=== PATIENT | female | born 1985 | race American Indian/Alaskan Native ===

== ENCOUNTER 2017-08-09 22:33 | Emergency (ER) | payer MEDICAID, OTHER ==
[2017-08-10 00:58] LABS: Basophils % (Auto) 0.5 % (0.0-1.8); Eosinophils % (Auto) 1.5 % (0.0-4.3); Hematocrit 28.9 % (30.3-42.9); Hemoglobin 9.8 gm/dl (10.1-14.3); Mean Corpuscular HGB Conc 34 % (30-34); Mean Corpuscular Hemoglobin 28 pg (28-32); Mean Corpuscular Volume 81 fl (79-97); Platelet Count 195 K/mm3 (140-440); Red Blood Count 3.55 M/mm3 (3.65-5.03); Red Cell Distribution Width 13.9 % (13.2-15.2); White Blood Count 10.8 K/mm3 (4.5-11.0)
[2017-08-10 01:10] LABS: Anion Gap 18 mmol/L; Blood Urea Nitrogen 7 mg/dL (7-17); Calcium 8.5 mg/dL (8.4-10.2); Carbon Dioxide 20 mmol/L (22-30); Glucose 114 mg/dL (65-100); Potassium 4.1 mmol/L (3.6-5.0); Sodium 137 mmol/L (137-145)
[2017-08-10 03:12] LABS: Bacteria,Urine 2+ /HPF (Negative); Bilirubin,Urine NEG (Negative); Blood,Urine NEG (Negative); Ketones,Urine NEG (Negative); Leukocyte Esterase,Urine LG (Negative); Mucus,Urine 2+ /HPF; Nitrite,Urine NEG (Negative)
[2017-08-10 04:06] VITALS: BP 133/89
--- NOTE | 2017-08-10 08:53 | Emergency Department Report ---
ED General Adult HPI - General Chief complaint: Extremity Injury, Lower Stated complaint: BILATERAL FEET SWELLING; 19 WKS PREG Time Seen by Provider: 08/10/17 08:51 Source: patient, family Mode of arrival: Ambulatory Limitations: No Limitations - History of Present Illness Initial comments: Patient here reports that she is 19 weeks and she's been followed by OB /TAKE OUT WAITER doctor which she is supposed to see in 3 days. She said today she woke up with both her legs swollen. She denies any pain but she reports headache at 5 out of 10 to the front of her head. Denies any nausea or vomiting. She also stated that she's been having right back pain 2 weeks. Reports some urinary frequency but denies urinary burning or urgency. Denies any vaginal discharge or bleeding. She says she had ultrasound done and baby was in her uterus. 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 Patient does not have any personal history of blood clots but her mom has a history of DVT. 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 She denies any shortness of breath or chest pain. Denies any abdominal pain. Denies any fever or chills. Pain is achy and she has not taken any medication for pain. Denies any redness or pain to bilateral lower extremity. Patient said that she's been having headaches and this has been addressed by her VEGETABLE TRIMMER doctor who is going to refer to a neurologist. MD Complaint: swelling to legs -: This morning (swelling legs) Location: head, back Radiation: non-radiation Severity scale (0 -10): 5 (headache and back pain) Quality: aching Consistency: intermittent Improves with: none Worsens with: none Associated Symptoms: headaches. denies: confusion, chest pain, cough, diaphoresis, fever/chills, loss of appetite, malaise, nausea/vomiting, rash, seizure, shortness of breath, syncope, weakness Treatments Prior to Arrival: none - Related Data Previous Rx's Medication Instructions Recorded Last Taken Type Acetaminophen/Codeine [Tylenol #3] 1 tab PO QHS #7 tablet 05/07/15 Unknown Rx methOCARBAMOL [Robaxin] 500 mg PO BID #14 tab 05/07/15 Unknown Rx Allergies Allergy/AdvReac Type Severity Reaction Status Date / Time No Known Allergies Allergy Unverified 05/07/15 11:14 ED Review of Systems ROS: Stated complaint: BILATERAL FEET SWELLING; 19 WKS PREG Other details as noted in HPI Comment: All other systems reviewed and negative Constitutional: no symptoms reported Eyes: denies: eye pain, vision change ENT: denies: ear pain, throat pain, congestion Respiratory: no symptoms reported Cardiovascular: edema (ble). denies: chest pain, palpitations, dyspnea on exertion, syncope, paroxysmal nocturnal dyspnea Gastrointestinal: denies: abdominal pain, nausea, vomiting, diarrhea, constipation, hematemesis, melena, hematochezia Genitourinary: denies: urgency, dysuria, frequency, hematuria, discharge, dyspareunia Musculoskeletal: back pain. denies: joint swelling, arthralgia, myalgia Skin: denies: rash Neurological: headache. denies: weakness, numbness, paresthesias, confusion, abnormal gait, vertigo ED Past Medical Hx - Past Medical History Previous Medical History?: Yes Hx Headaches / Migraines: Yes Additional medical history: Anemia - Surgical History Past Surgical History?: No - Family History Family history: no significant - Social History Smoking Status: Never Smoker Substance Use Type: None - Medications Home Medications: Home Medications Medication Instructions Recorded Confirmed Last Taken Type Acetaminophen/Codeine [Tylenol #3] 1 tab PO QHS #7 tablet 05/07/15 Unknown Rx methOCARBAMOL [Robaxin] 500 mg PO BID #14 tab 05/07/15 Unknown Rx ED Physical Exam - General Limitations: No Limitations General appearance: alert, in no apparent distress - Head Head exam: Present: atraumatic, normocephalic, normal inspection - Eye Eye exam: Present: normal appearance, PERRL, EOMI. Absent: nystagmus, periorbital swelling, periorbital tenderness Pupils: Present: normal accommodation - ENT ENT exam: Present: normal exam, normal orophraynx, mucous membranes moist, TM's normal bilaterally, normal external ear exam - Neck Neck exam: Present: normal inspection, full ROM. Absent: tenderness, lymphadenopathy - Respiratory Respiratory exam: Present: normal lung sounds bilaterally. Absent: respiratory distress, wheezes, rales, rhonchi, stridor, chest wall tenderness, accessory muscle use, decreased breath sounds, prolonged expiratory - Cardiovascular Cardiovascular Exam: Present: regular rate, normal rhythm, normal heart sounds - GI/Abdominal GI/Abdominal exam: Present: soft, normal bowel sounds. Absent: distended, tenderness, guarding, rebound, rigid, organomegaly, mass, bruit, pulsatile mass - Extremities Exam Extremities exam: Present: normal inspection, full ROM, normal capillary refill , pedal edema ( proximal to distal to include feet bilateral lower extremity), other (no neurovascular compromise. Pulses to extremities are 2+.). Absent: tenderness, joint swelling, calf tenderness - Back Exam Back exam: Present: normal inspection, full ROM. Absent: tenderness, CVA tenderness (R), CVA tenderness (L), muscle spasm, paraspinal tenderness, vertebral tenderness, rash noted - Neurological Exam Neurological exam: Present: alert, oriented X3, normal gait, reflexes normal. Absent: motor sensory deficit - Expanded Neurological Exam Expanded Neurological exam: Absent: innattentive, memory loss-remote event, memory loss- recent event, ataxia, receptive aphasia, expressive aphasia, total aphasia, tremor, protecting the airway Patient oriented to: Present: person, place, time Speech: Present: fluid speech Cranial nerves: EOM's Intact: Normal, Gag Reflex: Normal, Tongue Deviation: Normal, Nystagmus: Normal, Facial Sensation: Normal Cerebellar function: Romberg: Normal Upper motor neuron: Pronator Drift: Normal, Sensory Extinction: Normal Sensory exam: Upper Extremity Light Touch: Normal, Upper Extremity Temperature: Normal, UE 2 Point Discrimination: Normal, Lower Extremity Light Touch: Normal Motor strength exam: RUE: 5, LUE: 5, RLE: 5, LLE: 5 DTR: bicep (R): 2+, bicep (L): 2+, tricep (R): 2+, tricep (L): 2+, knee (R): 2+ , knee (L): 2+, ankle (R): 2+, ankle (L): 2+ Best Eye Response (Marcela): (4) open spontaneously Best Motor Response (Marcela): (6) obeys commands Best Verbal Response ([place]): (5) oriented Marcela Total: 15 - Psychiatric Psychiatric exam: Present: normal affect, normal mood - Skin Skin exam: Present: warm, dry, intact, normal color. Absent: rash ED Course Vital Signs 08/09/17 08/10/17 23:29 04:05 Temperature 97.9 F 97.9 F Pulse Rate 97 H 91 H Respiratory 16 16 Rate Blood Pressure 118/82 133/89 Blood Pressure 118/82 [Left] O2 Sat by Pulse 100 100 Oximetry heart tone is 172 bpm via bedside monitor - Reevaluation(s) Reevaluation #1: 08/10/17 10:00 Patient stable no acute distress. She was updated on for vascular ultrasound due to bilateral lower extremity swelling. Reevaluation #2: 08/10/17 12:58 Patient remained stable without any distress. Patient with urinary tract infection and will be given Rocephin IM injection. Bilateral lower extremity negative for DVT or SVT. ED Medical Decision Making - Lab Data Result diagrams: 08/10/17 00:21 08/10/17 00:21 Lab Results 08/09/17 08/10/17 08/10/17 Range/Units 03:00 00:21 00:21 WBC 10.8 (4.5-11.0) K/mm3 RBC 3.55 L (3.65-5.03) M/mm3 Hgb 9.8 L (10.1-14.3) gm/dl Hct 28.9 L (30.3-42.9) % MCV 81 (79-97) fl MCH 28 (28-32) pg MCHC 34 (30-34) % RDW 13.9 (13.2-15.2) % Plt Count 195 (140-440) K/mm3 Lymph % (Auto) 29.2 (13.4-35.0) % [place] % (Auto) 6.6 (0.0-7.3) % Eos % (Auto) 1.5 (0.0-4.3) % Baso % (Auto) 0.5 (0.0-1.8) % Lymph # 3.1 (1.2-5.4) K/mm3 [place] # 0.7 (0.0-0.8) K/mm3 Eos # 0.2 (0.0-0.4) K/mm3 Baso # 0.1 (0.0-0.1) K/mm3 Seg Neutrophils % 62.2 (40.0-70.0) % Seg Neutrophils # 6.7 (1.8-7.7) K/mm3 Sodium 137 (137-145) mmol/L Potassium 4.1 (3.6-5.0) mmol/L Chloride 103.0 (98-107) mmol/L Carbon Dioxide 20 L (22-30) mmol/L Anion Gap 18 mmol/L BUN 7 (7-17) mg/dL Creatinine 0.5 L (0.7-1.2) mg/dL Estimated GFR > 60 ml/min BUN/Creatinine Ratio 14.00 % Glucose 114 H (65-100) mg/dL Calcium 8.5 (8.4-10.2) mg/dL HCG, Quant (0-4) mIU/mL Urine Color Yellow (Yellow) Urine Turbidity Clear (Clear) Urine pH 6.0 (5.0-7.0) Ur Specific [place] 1.028 (1.003-1.030) Urine Protein 30 mg/dl (Negative) mg/dL Urine Glucose (UA) Neg (Negative) mg/dL Urine Ketones Neg (Negative) mg/dL Urine Blood Neg (Negative) Urine Nitrite Neg (Negative) Urine Bilirubin Neg (Negative) Urine Urobilinogen 2.0 (<2.0) mg/dL Ur Leukocyte Esterase Lg (Negative) Urine WBC (Auto) 76.0 H (0.0-6.0) /HPF Urine RBC (Auto) 4.0 (0.0-6.0) /HPF U Epithel Cells (Auto) 44.0 H (0-13.0) /HPF Urine Bacteria (Auto) 2+ (Negative) /HPF Calcium Oxalate Crystal 1+ Hyaline Casts 1 /LPF Urine Mucus 2+ /HPF 08/10/17 Range/Units 00:21 WBC (4.5-11.0) K/mm3 RBC (3.65-5.03) M/mm3 Hgb (10.1-14.3) gm/dl Hct (30.3-42.9) % MCV (79-97) fl MCH (28-32) pg MCHC (30-34) % RDW (13.2-15.2) % Plt Count (140-440) K/mm3 Lymph % (Auto) (13.4-35.0) % [place] % (Auto) (0.0-7.3) % Eos % (Auto) (0.0-4.3) % Baso % (Auto) (0.0-1.8) % Lymph # (1.2-5.4) K/mm3 [place] # (0.0-0.8) K/mm3 Eos # (0.0-0.4) K/mm3 Baso # (0.0-0.1) K/mm3 Seg Neutrophils % (40.0-70.0) % Seg Neutrophils # (1.8-7.7) K/mm3 Sodium (137-145) mmol/L Potassium (3.6-5.0) mmol/L Chloride (98-107) mmol/L Carbon Dioxide (22-30) mmol/L Anion Gap mmol/L BUN (7-17) mg/dL Creatinine (0.7-1.2) mg/dL Estimated GFR ml/min BUN/Creatinine Ratio % Glucose (65-100) mg/dL Calcium (8.4-10.2) mg/dL HCG, Quant 99703 H (0-4) mIU/mL Urine Color (Yellow) Urine Turbidity (Clear) Urine pH (5.0-7.0) Ur Specific [place] (1.003-1.030) Urine Protein (Negative) mg/dL Urine Glucose (UA) (Negative) mg/dL Urine Ketones (Negative) mg/dL Urine Blood (Negative) Urine Nitrite (Negative) Urine Bilirubin (Negative) Urine Urobilinogen (<2.0) mg/dL Ur Leukocyte Esterase (Negative) Urine WBC (Auto) (0.0-6.0) /HPF Urine RBC (Auto) (0.0-6.0) /HPF U Epithel Cells (Auto) (0-13.0) /HPF Urine Bacteria (Auto) (Negative) /HPF Calcium Oxalate Crystal Hyaline Casts /LPF Urine Mucus /HPF urine CX pending - Radiology Data Radiology results: report reviewed VASCULAR LAB.PRELIMINARY REPORT.BLE VENOUS DUPLEX DONE BEDSIDE.NO EVIDENCE OF DVT/SVT IN VESSELS VISUALIZED. - Medical Decision Making ED course: Patient here reports that she is 19 weeks and insulin to her legs. She is also complaining of right back pain for 2 weeks with urinary frequency. Physical physical finding and normal except she has swelling to her lower extremity without any tenderness or erythema. She is neurovascular intact. Patient was also complaining a headache which she has had headache episodic over the past few months has been followed by her physician who will refer her to urologist. Patient was also complaining of right back pain and was found to have a urinary tract infection. Bilateral lower extremity Doppler ultrasound done and revealed no SVT or DVT. Lab work with CBC showing H&H at 9.8 and 28.9 which is low and the patient says she has a history of anemia and she is taking vitamins. [place] [id number]. No worrisome for ectopic because patient had normal ultrasound done by her VEGETABLE TRIMMER. She is not having any vaginal bleeding or discharge and she's had previous STD workup during her . Patient also with 30 protein in her urine. Pt has chest pain or shortness of breath. Patient with swelling to bilateral lower extremity, right lower back pain, at 19 weeks with heart tone stable. Headache which is chronic, acute cystitis and hematuria and anemia which is chronic. I discussed diagnosis and treatment plan along with ultrasound findings with patient and instructed her to keep her visit with her VEGETABLE TRIMMER in the next 3 days. She voiced understanding and discharged home in stable condition with her family member. Critical care attestation.: If time is entered above; I have spent that time in minutes in the direct care of this critically ill patient, excluding procedure time. ED Disposition Clinical Impression: Acute cystitis during in second trimester, Back pain during , Proteinuria during Anemia in Qualifiers: Trimester: second trimester Qualified Code(s): O99.012 - Anemia complicating , second trimester Headache Qualifiers: Headache type: unspecified Headache chronicity pattern: episodic headache Intractability: not intractable Qualified Code(s): R51 - Headache Edema during Qualifiers: Trimester: second trimester Qualified Code(s): O12.02 - Gestational edema, second trimester Disposition: DC-01 TO HOME OR SELFCARE Is pt being admited?: No Does the pt Need Aspirin: No Condition: Stable Instructions: Anemia (ED), Pre-eclampsia and Eclampsia (ED), Urinary Tract Infection in Women (ED), Back Pain (ED), Leg Edema (ED), Acute Headache (ED) Additional Instructions: These follow-up with the VEGETABLE TRIMMER as schedule in 3 days. You have swelling to both legs and also some protein in U urine so you'll need to let your VEGETABLE TRIMMER that you were seen in emergency room and will need to request chart from medical record department. If you develop abdominal pain, vaginal bleeding, elevated blood pressure please return to emergency room I[facility] You have a urinary tract infection and will be treated with antibiotic. increase your fluid intake. Take your vitamin as you have anemia. Referrals: PRIMARY CARE, [Primary Care Provider] - 2-3 Days your, VEGETABLE TRIMMER [Other] - 08/13/17 Forms: Accompanied Note, Work/School Release Form(ED)
[2017-08-10] MEDS ORDERED: ROCEPHIN IM STA (12:59)
--- NOTE | 2017-08-12 12:43 | Vascular Lab Report ---
Left Lower Extremity Venous Duplex Study: Reason for Exam: swelling of the left lower extremity. Comments on the Right: A limited duplex study was done of the proximal veins of the right lower extremity. All veins visualized are freely compressible without evidence of internal echogenicity. Flow is spontaneous and phasic throughout. No evidence of acute or chronic thrombus is seen in any of the vessels visualized. Comments on the Left: All veins visualized are freely compressible without evidence of internal echogenicity. Flow is spontaneous and phasic throughout. No evidence of acute or chronic thrombus is seen in any of the vessels visualized. Impression: No evidence of acute or chronic deep venous thrombosis in the left lower extremity.
== END 2017-08-10 14:02 | disposition home or self-care (01) ==
LOC: ED 22:33
DX: O23.12 Infections of bladder in pregnancy, second trimester (principal); N30.90 Cystitis, unspecified without hematuria; O12.22 Gestational edema with proteinuria, second trimester; O26.892 Other specified pregnancy related conditions, second trimester; M54.9 Dorsalgia, unspecified; R51 Headache; Z3A.19 19 weeks gestation of pregnancy
CPT/HCPCS: 36415; 80048; 81001; 84702; 85025; 87086; 93970; 96372; 99283; J0696

== ENCOUNTER 2017-11-26 19:14 | Outpatient (CLI) | payer OTHER ==
[2017-11-26] MEDS ORDERED: LACTATED RINGERS 500 ML IV ONE (19:16)
[2017-11-26 19:31] VITALS: BP 127/80
[2017-11-26 19:54] LABS: Bacteria,Urine 1+ /HPF (Negative); Bilirubin,Urine NEG (Negative); Blood,Urine NEG (Negative); Color,Urine Yellow (Yellow); Hyaline Casts,Urine 1 /LPF; Mucus,Urine 3+ /HPF; Nitrite,Urine NEG (Negative)
[2017-11-26 21:08] LABS: Bilirubin,Urine NEG (Negative); Blood,Urine NEG (Negative); Color,Urine Yellow (Yellow); Mucus,Urine 3+ /HPF; Nitrite,Urine NEG (Negative); Protein,Urine <15 mg/dL mg/dL (Negative)
== END 2017-11-26 21:22 | disposition home or self-care (01) ==
LOC: TRG 19:14
PROVIDERS: ATTEND Obstetrics & Gynecology
DX: Z34.93 Encounter for supervision of normal pregnancy, unspecified, third trimester (principal); Z3A.35 35 weeks gestation of pregnancy
CPT/HCPCS: 59025; 81001

== ENCOUNTER 2017-12-17 10:18 | Outpatient (CLI) | payer OTHER ==
[2017-12-17 11:24] LABS: Hematocrit 29.8 % (30.3-42.9); Hemoglobin 9.4 gm/dl (10.1-14.3); Mean Corpuscular HGB Conc 31 % (30-34); Mean Corpuscular Volume 76 fl (79-97); Platelet Count 196 K/mm3 (140-440); Red Blood Count 3.92 M/mm3 (3.65-5.03); Red Cell Distribution Width 14.6 % (13.2-15.2)
[2017-12-17 11:27] LABS: Bacteria,Urine 1+ /HPF (Negative); Bilirubin,Urine NEG (Negative); Blood,Urine NEG (Negative); Color,Urine Yellow (Yellow); Mucus,Urine 2+ /HPF; Nitrite,Urine NEG (Negative)
[2017-12-17 11:28] LABS: Mean Corpuscular Hemoglobin 24 pg (28-32)
[2017-12-17 11:38] LABS: Uric Acid 4.8 mg/dL (3.5-7.6)
[2017-12-17 12:06] VITALS: BP 131/84
--- NOTE | 2017-12-17 12:33 | Ultrasound Report ---
ULTRASOUND BIOPHYSICAL PROFILE: History: well being Technique: Transabdominal ultrasound with Doppler interrogation. 2 - breathing movements 2 - movements 2 - posture and tone 2 - Qualitative amniotic fluid volume 8 - TOTAL SCORE OF POSSIBLE 8 Heart Rate (bpm) 154
--- NOTE | 2017-12-18 08:02 | Ultrasound Report ---
OB ULTRASOUND History well being, size and dates, -induced hypertension. Technique: Transabdominal ultrasound with Doppler interrogation. Gestation: Single Position: Cephalic Amniotic Fluid: Normal SHELTON = 11.2 cm Placenta: Left lateral Placental Grade: 2 Heart Rate: 158 BPM Cervical length: 2.9 cm (Normal > 3 cm) BPD: 9.4 cm = 38 w 3 d HC: 34.6 cm = 40 w 0 d AC: 33.2 cm = 37 w 1 d FL: 7.0 cm = 36 w 0 d HC/AC Ratio: 1.04 Cephalic Index: 85.8 Estimated Weight: 3170 grams. 41 percentile. Clinical age = 38 w 1 d EDC: 12/30/17 US Gest. Age = 37 w 6 d EDC: 01/01/18 IMPRESSION: Viable, single intrauterine as described.
== END 2017-12-17 12:24 | disposition home or self-care (01) ==
LOC: TRG 10:18
PROVIDERS: ATTEND Obstetrics & Gynecology
DX: Z34.93 Encounter for supervision of normal pregnancy, unspecified, third trimester (principal); Z3A.38 38 weeks gestation of pregnancy
CPT/HCPCS: 36415; 59025; 76805; 76819; 81001; 82565; 83615; 84450; 84460; 84550; 85027

== ENCOUNTER 2017-12-24 20:40 | Inpatient (IN) | payer OTHER ==
[2017-12-24 22:15] LABS: Hematocrit 27.7 % (30.3-42.9); Hemoglobin 9.2 gm/dl (10.1-14.3); Mean Corpuscular HGB Conc 33 % (30-34); Mean Corpuscular Volume 74 fl (79-97); Platelet Count 210 K/mm3 (140-440); Red Blood Count 3.76 M/mm3 (3.65-5.03); Red Cell Distribution Width 14.9 % (13.2-15.2)
[2017-12-24 22:16] LABS: Mean Corpuscular Hemoglobin 25 pg (28-32)
[2017-12-24 22:19] LABS: Bilirubin,Urine NEG (Negative); Blood,Urine MOD (Negative); Color,Urine Yellow (Yellow); Mucus,Urine 2+ /HPF; Nitrite,Urine NEG (Negative)
[2017-12-24 22:36] LABS: Alanine Aminotransferase 9 units/L (7-56); Uric Acid 4.9 mg/dL (3.5-7.6)
--- NOTE | 2017-12-25 00:36 | Ultrasound Report ---
FINAL REPORT EXAM: US OB BPP WO NON-STRESS HISTORY: Increased BP TECHNIQUE: A biophysical profile was performed. FINDINGS: For breathing movements, a score of 2 out of 2 was obtained. For movements, a score of 2 out of 2 was obtained. For posture in tone, a score of 2 out of 2 was obtained. For qualitative amniotic fluid volume, a score of 2 out of 2 was obtained. The total biophysical profile score was 8 out of 8. The heart is 139 BPM. IMPRESSION: Biophysical profile score of 8 out of 8. heart rate is 139 BPM.
--- NOTE | 2017-12-25 00:38 | Ultrasound Report ---
FINAL REPORT PROCEDURE: US OB LIMITED TECHNIQUE: Sonographic evaluation for breathing, movement, tone, and amniotic fluid volume was performed. SHELTON was measured. CPT 74370 HISTORY: Increased blood pressure. COMPARISON: No prior studies are available for comparison. FINDINGS: LMP: 03/25/2017. Clinical age: 39 weeks 1 day. EDC: 12/30/2017. Amniotic fluid volume: Normal-score 2. At least one vertical pocket > 2 cm or more in vertical axis. breathing: Normal-score 2. movement: Normal-score 2. tone: Normal. Score: 8 of 8. heart rate: 139 beats per minute. SHELTON: 10.5 cm. position: Cephalic. IMPRESSION: Normal biophysical profile. Score 8/8.SHELTON within normal limits at 10.5 cm.
[2017-12-25] MEDS ORDERED: MAGNESIUM SULFATE 4GM/100ML 4 GM/100 ML BAG IV ONE (01:07)
[2017-12-25] MEDS ORDERED: LACTATED RINGERS 2,000 ML ONE (01:07)
[2017-12-25] MEDS ORDERED: MAGNESIUM SULFATE IV ONE (01:24)
[2017-12-25] MEDS ORDERED: LACTATED RINGERS 1,000 ML IV ONE (01:24)
[2017-12-25] MEDS ORDERED: SUBLIMAZE IV PRN (01:51)
[2017-12-25] MEDS ORDERED: XYLOCAINE 2% INFILTRATI ONE (01:51)
[2017-12-25] MEDS ORDERED: NARCAN 0.4 MG/1 ML IV PRN (01:51)
[2017-12-25] MEDS ORDERED: ePHEDrine SULFATE IV PRN ×2 (01:51→02:00)
[2017-12-25] MEDS ORDERED: MINERAL OIL PO PRN (01:51)
[2017-12-25] MEDS ORDERED: PHENERGAN PR PRN ×2 (01:51→04:49)
[2017-12-25] MEDS ORDERED: ZOFRAN IV PRN ×2 (01:51→04:49)
[2017-12-25] MEDS ORDERED: STADOL IV PRN (01:51)
[2017-12-25] MEDS ORDERED: BRETHINE IVP PRN (01:51)
[2017-12-25] MEDS ORDERED: BRETHINE SUB-Q PRN (01:51)
[2017-12-25] MEDS ORDERED: ePHEDrine SULFATE ONE (01:56)
[2017-12-25] MEDS ORDERED: MAGNESIUM SULFATE 4GM/100ML 4 GM/100 ML BAG IV SCH (02:00)
[2017-12-25] MEDS ORDERED: fentaNYL-BUPIV 2 MCG/ML-0.125% 200 MCG/100 ML BAG EPIDURAL SCH (02:00)
[2017-12-25] MEDS ORDERED: PITOCin/NS 20 UNIT/1000ML DRIP 20 UNITS/1,000 ML BAG IV SCH (02:00)
[2017-12-25] MEDS ORDERED: NARCAN 2 MG/2 ML IV PRN (02:00)
[2017-12-25] MEDS ORDERED: MAGNESIUM SULFATE 40GM/1000ML 40 GM/1,000 ML BAG IV SCH ×2 (02:00→05:00)
[2017-12-25] MEDS ORDERED: PITOCin/NS 30 UNIT/500ML 30 UNITS/500 ML BAG IV SCH ×2 (02:00)
--- NOTE | 2017-12-25 02:06 | History and Physical Report ---
History of Present Illness Date of examination: 12/25/17 Date of admission: 12/25/17 00:32 Chief complaint: This is a 32 yo at 39+1 weeks came into triage complaining of contractions. During evaluation she had elevated BP 140-160/90s-100s. She has no complaints of holm,bv, nor scotomata. She began experiencing contractions and changed cervix from 2cm to 5cm . She is a patient of [facility] since 6 weeks. 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 denies: smoking, alcohol abuse, prescription drug abuse - Obstetrical History Expected Date of Delivery: 12/30/17 Actual Gestation: 39 Week(s) 2 Day(s) : 5 Para: 2 Hx # Term Pregnancies: 2 Number of Pregnancies: 0 Spontaneous Abortions: 0 Induced : 2 Number of Living Children: 2 Medications and Allergies Allergies Allergy/AdvReac Type Severity Reaction Status Date / Time No Known Allergies Allergy Verified 11/26/17 19:16 Home Medications Medication Instructions Recorded Confirmed Last Taken Type Valacyclovir HCl [Valtrex] 500 mg PO BID 12/17/17 12/17/17 12/15/17 History Active Meds: Active Medications Butorphanol Tartrate (Stadol) 2 mg IV Q2H PRN PRN Reason: Pain , Severe (7-10) Ephedrine Sulfate (Ephedrine Sulfate) 10 mg IV Q2M PRN PRN Reason: Hypotension Fentanyl (Sublimaze) 100 mcg IV Q2H PRN PRN Reason: Labor Pain Lactated Ringer's (Lactated Ringers) 1,000 mls @ 999 mls/hr IV BOLUS ONE Stop: 12/25/17 02:24 Magnesium Sulfate (Magnesium Sulfate 40gm/1000ml) 40 gm in 1,000 mls @ 25 mls/ hr IV DIRECT YUNIOR PRN Reason: 1 GM/HR Magnesium Sulfate (Magnesium Sulfate 4gm/100ml) 4 gm in 100 mls @ 100 mls/hr IV ONCE YUNIOR Lactated Ringer's (Lactated Ringers) 1,000 mls @ 125 mls/hr IV DIRECT YUNIOR Oxytocin/Sodium Chloride (Pitocin/Ns 20 Unit/1000ml Drip) 20 units in 1,000 mls @ 125 mls/hr IV DIRECT YUNIOR Oxytocin/Sodium Chloride (Pitocin/Ns 30 Unit/500ml) 30 units in 500 mls @ 1 mls /hr IV TITR YUNIOR; 1 MILLIUNITS/MIN PRN Reason: Protocol Oxytocin/Sodium Chloride (Pitocin/Ns 30 Unit/500ml) 30 units in 500 mls @ 0 mls /hr IV TITR YUNIOR; As Directed PRN Reason: Protocol Lidocaine (Xylocaine 2%) 20 ml INFILTRATI ONCE ONE Stop: 12/25/17 01:52 Mineral Oil (Mineral Oil) 30 ml PO QHS PRN PRN Reason: Constipation Naloxone HCl (Narcan 0.4 Mg/1 Ml) 0.1 mg IV Q2MIN PRN PRN Reason: Res Rate </= 8 or 02 SAT < 92% Ondansetron HCl (Zofran) 4 mg IV Q8H PRN PRN Reason: Nausea And Vomiting Promethazine HCl (Phenergan) 25 mg IA Q6H PRN PRN Reason: N/V if unable to take po Terbutaline Sulfate (Brethine) 0.25 mg SUB-Q ONCE PRN PRN Reason: Hyperstimulation/Hypertonicity Terbutaline Sulfate (Brethine) 0.25 mg IVP ONCE PRN PRN Reason: Hyperstimulation/Hypertonicity Review of Systems All systems: negative Genitourinary: contractions - Vital Signs Vital signs: Vital Signs Pulse BP 90 146/98 12/24/17 21:00 12/24/17 21:00 Temp Pulse Resp BP Pulse Ox 98.3 F 96 H 18 153/98 12/25/17 01:28 12/25/17 01:55 12/25/17 01:28 12/25/17 01:55 - Physical Exam Breasts: Positive: normal Cardiovascular: Regular rate, Normal S1 Lungs: Positive: Clear to auscultation, Normal air movement Abdomen: Positive: normal appearance, soft, normal bowel sounds. Negative: distention, tenderness, guarding Genitourinary (Female): Positive: normal external genitalia, normal perenium Vulva: both: normal Vagina: Positive: normal moisture Uterus: Positive: normal size Adnexa: both: normal Anus/Rectum: Positive: normal perianal skin Extremities: Positive: normal Deep Tendon Reflex Grade: Normal +2 - Obstetrical FHR: category 1 Uterine Contraction Monitor Mode: External Cervical Dilatation: 7 Cervical Effacement Percentage: 90 station: -2 Uterine Contraction Pattern: Regular Uterine Tone Measurement Phase: Contraction Uterine Contraction Intensity: Strong/Firm Results Result Diagrams: 12/24/17 21:00 12/24/17 21:00 Abnormal lab results 12/24/17 12/24/17 Range/Units 21:00 21:00 Hgb 9.2 L (10.1-14.3) gm/dl Hct 27.7 L (30.3-42.9) % MCV 74 L (79-97) fl MCH 25 L (28-32) pg Creatinine 0.5 L (0.7-1.2) mg/dL Lactate Dehydrogenase 232 H (91-180) units/L All other labs normal. Ultrasound: report reviewed Assessment and Plan A/P HD#1 term 39+1 weeks Elevated BP PIH w/u neg Initiated Mag sulfate close and maternal monitoring GBS neg no abx needed offer epidural expect vaginal delivery
[2017-12-25] MEDS: LACTATED RINGERS 1,000 ML IV SCH ×2 (02:21→14:05)
--- NOTE | 2017-12-25 02:38 | Anesthesia Consultation ---
Anesthesia Consult and Med Hx Date of service: 12/25/17 - Airway Anesthetic Teeth Evaluation: Good ROM Head & Neck: Adequate Mental/Hyoid Distance: Adequate Mallampati Class: Class III Intubation Access Assessment: Possibly Difficult - Pulmonary Exam CTA: Yes - Cardiac Exam Cardiac Exam: RRR - Pre-Operative Health Status ASA Pre-Surgery Classification: ASA2 Proposed Anesthetic Plan: Epidural - Pulmonary Hx Asthma: No COPD: No Hx Pneumonia: No - Cardiovascular System Hx Hypertension: Yes (WITH THIS ) - Central Nervous System Hx Seizures: No Hx Psychiatric Problems: No - Endocrine Hx Renal Disease: No Hx End Stage Renal Disease: No Hx Hypothyroidism: No Hx Hyperthyroidism: No - Hematic Hx Anemia: No Hx Sickle Cell Disease: No - Other Systems Hx Alcohol Use: No Hx Substance Use: No
--- NOTE | 2017-12-25 02:38 | Anesthesia Day of Surgery ---
Anesthesia Day of Surgery - Day of Surgery Patient Examined: Yes Patient H&P Reviewed: Yes Patient is NPO: Yes Beta Blockers: Yes Cardiac Clearance: Yes Pulmonary Clearance: Yes
[2017-12-25] MEDS ORDERED: CYTOTEC ONE (04:38)
[2017-12-25] MEDS ORDERED: TUCKS PAD TP PRN (04:49)
[2017-12-25] MEDS ORDERED: TORADOL IV PRN (04:49)
[2017-12-25] MEDS ORDERED: MILK OF MAGNESIA PO PRN (04:49)
[2017-12-25] MEDS ORDERED: NORCO 5/325 PO PRN (04:49)
[2017-12-25] MEDS ORDERED: BENADRYL PO PRN (04:49)
[2017-12-25] MEDS ORDERED: PHENERGAN PO PRN (04:49)
[2017-12-25] MEDS ORDERED: DULCOLAX PR PRN (04:49)
[2017-12-25] MEDS ORDERED: TYLENOL PO PRN (04:49)
[2017-12-25] MEDS ORDERED: LANSINOH TP PRN (04:49)
--- NOTE | 2017-12-25 04:49 | Procedure Note ---
OB Delivery Note - Delivery Date of Delivery: 12/25/17 Surgeon: MIKEY LIGHT Estimated blood loss: 300cc - Vaginal Delivery presentation: vertex Delivery position: OA Intrapartum events: none Delivery induction: none Delivery augmentation: rupture of membranes, pitocin Delivery monitor: external FHT, external uterine Route of delivery: Delivery placenta: spontaneous Delivery cord: 3 umbilical vessels Episiotomy: none Delivery laceration: none Anesthesia: epidural Delivery comments: Patient was noted to be and commenced to pushing a viable female at 0438 in OA presentation. Baby placed on chest and suction nasopharynx. Cord was clamped and cut and handed to mother. Apgars were 8 and 9 . The placenta was delivered intact with 3 vessel cord at 0440 . Perineum examined and no lacs revealed. patient tolerated procedure well. Bonding with baby. - Infant A at 1 minute: 8 at 5 minutes: 9 Infant Gender: Female
[2017-12-25 04:59] LABS: Hematocrit 30.5 % (30.3-42.9); Hemoglobin 9.5 gm/dl (10.1-14.3); Mean Corpuscular HGB Conc 31 % (30-34); Mean Corpuscular Volume 75 fl (79-97); Platelet Count 226 K/mm3 (140-440); Red Blood Count 4.07 M/mm3 (3.65-5.03)
[2017-12-25] MEDS ORDERED: SODIUM CHLORIDE FLUSH SYRINGE 10 ML IV NR (05:00)
[2017-12-25 05:03] LABS: Mean Corpuscular Hemoglobin 23 pg (28-32)
[2017-12-25] MEDS ORDERED: SENOKOT S PO SCH (06:00)
[2017-12-25] MEDS: MOTRIN PO SCH (06:20)
[2017-12-25] MEDS: PERCOCET 5/325 PO PRN (08:05)
[2017-12-25] MEDS: PRENATAL VITAMIN PO SCH (14:09)
[2017-12-25 17:38] LABS: Hematocrit 25.8 % (30.3-42.9)
[2017-12-25] MEDS ORDERED: NORMODYNE PO SCH (22:00)
[2017-12-25] MEDS: COLACE PO SCH (22:46)
[2017-12-26] MEDS: MOTRIN PO SCH (01:40)
[2017-12-26] MEDS ORDERED: M-M-R II VACCINE SUB-Q ONE (06:00)
[2017-12-26] MEDS ORDERED: BOOSTRIX IM ONE (06:00)
--- NOTE | 2017-12-26 08:55 | Progress Note ---
Assessment and Plan A: PPD#1 s/p at term; Severe Preclampsia s/p Mag Sulfate x 24 hrs P: Increased labetalol to 200 mg BID and continue to monitor clinical status. Subjective - Subjective Date of service: 12/26/17 Principal diagnosis: Preeclampsia, s/p term Interval history: No new complaints this morning. Patient reports: appetite normal, voiding normally, pain well controlled, ambulating normally : doing well Objective - Vital Signs Latest vital signs: Vital Signs Temp Pulse Resp BP BP Pulse Ox 12/26/17 04:28 98.3 F 140/93 12/26/17 02:15 98.6 F 137/91 12/26/17 01:22 98.2 F 135/99 12/25/17 22:44 94 H 135/95 12/25/17 18:40 130/92 12/25/17 18:28 97.5 F L 18 130/92 12/25/17 16:27 97.5 F L 85 18 134/94 97 12/25/17 14:24 97.5 F L 18 140/93 12/25/17 12:22 98.2 F 83 20 140/96 99 12/25/17 10:13 97.8 F 85 18 138/97 98 Intake and Output 12/25/17 12/26/17 12/26/17 22:59 06:59 14:59 Intake Total 600 Output Total 1800 2100 Balance -1200 -2100 Intake: Oral 600 Output: Urine 1800 2100 Indwelling Catheter 1100 Uretheral (Falk) 700 2100 Other: Total, Intake Amount 240 Total, Output Amount 400 - Exam Breasts: Present: deferred Cardiovascular: Present: Regular rate Lungs: Present: Clear to auscultation Abdomen: Present: soft Uterus: Present: fundal height at umbilicus Extremities: Present: normal - Labs Labs: Abnormal lab results 12/25/17 Range/Units 16:56 Hgb 8.0 L (10.1-14.3) gm/dl Hct 25.8 L (30.3-42.9) %
[2017-12-26] MEDS: NORMODYNE PO SCH ×2 (12:00→22:35)
[2017-12-26] MEDS: PRENATAL VITAMIN PO SCH (12:00)
[2017-12-26] MEDS: PERCOCET 5/325 PO PRN (17:16)
[2017-12-27] MEDS: MOTRIN PO SCH (00:28)
[2017-12-27] MEDS: COLACE PO SCH ×2 (10:21→10:22)
[2017-12-27] MEDS: NORMODYNE PO SCH (10:21)
[2017-12-27] MEDS: PRENATAL VITAMIN PO SCH (10:21)
--- NOTE | 2017-12-27 15:37 | Progress Note ---
Assessment and Plan O: VSS AF BP: 120-130/80-90 A: Stable PP Day 2 S/P preeclampsia P: D/C home Subjective - Subjective Date of service: 12/27/17 Principal diagnosis: Preeclampsia, s/p term Patient reports: appetite normal, voiding normally, pain well controlled, flatus , ambulating normally, other (Denies PIH S&S) [place]: doing well, bottle feeding Objective - Vital Signs Latest vital signs: Vital Signs Temp Pulse Resp BP BP 12/27/17 10:21 77 133/87 12/27/17 08:15 98.3 F 74 18 138/92 12/27/17 00:00 98.3 F 87 18 128/83 12/26/17 22:35 82 145/93 12/26/17 20:10 98.2 F 80 18 129/86 12/26/17 18:10 138/98 12/26/17 17:16 20 Intake and Output 12/27/17 12/27/17 12/27/17 06:59 14:59 22:59 Intake Total 240 120 Balance 240 120 Intake: Oral 240 120 Other: Total, Intake Amount 240 120 # Voids Void 1 1 - Exam Breasts: Present: deferred Lungs: Present: Normal air movement Abdomen: Present: normal appearance, soft. Absent: distention, tenderness Vulva: both: normal Uterus: Present: normal, firm, fundal height below umbilicus (2 below U, ML). Absent: bogginess, tenderness Extremities: Present: normal
--- NOTE | 2017-12-27 15:44 | Discharge Summary ---
Providers - Providers Date of Admission: 12/25/17 00:32 Date of discharge: 12/27/17 Attending physician: MIKEY LIGHT MD Primary care physician: MIKEY LIGHT MD Hospitalization Reason for admission: active labor, IUP at term Delivery: Episiotomy: none Laceration: none Other procedures: none complications: other (preeclampsia) Discharge diagnosis: IUP at term delivered [place] baby: female Condition at discharge: Good Disposition: DC-01 TO HOME OR SELFCARE Plan - Discharge Medications Prescriptions: Ferrous Sulfate [Feosol 325 MG tab] 325 mg PO BID #60 tablet Ibuprofen [Motrin 600 MG tab] 600 mg PO Q6H PRN #30 tablet PRN Reason: Pain Labetalol [Normodyne TAB] 200 mg PO BID #60 tablet oxyCODONE /ACETAMINOPHEN [Percocet 5/325] 1 tab PO Q6HR PRN #30 tablet PRN Reason: Pain - Provider Discharge Summary Activity: routine, no sex for 6 weeks, no heavy lifting 4 weeks, no strenuous exercise Diet: routine Instructions: routine Additional instructions: [] Smoking cessation referral if applicable(refer to patient education folder for contact #) [] Refer to [facility] Booklet Call your doctor immediately for: * Fever > 100.5 * Heavy vaginal bleeding ( >1 pad per hour) * Severe persistent headache * Shortness of breath * Reddened, hot, painful area to leg or breast * Drainage or odor from incision. * Keep incision clean and dry at all times and follow doctor's instructions regarding bathing/showering - Follow up plan Follow up: MIKEY LIGHT MD [Primary Care Provider] - 7 Days (RTO one week for BP check. Urget follow up for elevated blood pressue or headache)
[2017-12-27 17:34] VITALS: BP 132/87
== END 2017-12-27 17:50 | disposition home or self-care (01) | DRG 774 ==
LOC: TRG 20:40 → LD 12-25 00:32 → OB 12-25 07:42
PROVIDERS: ADMIT Obstetrics & Gynecology; ATTEND Obstetrics & Gynecology
PROC: 10E0XZZ Delivery of Products of Conception, External Approach (ICD-10-PCS; principal; 2017-12-25)
PROC: 3E0R3BZ Introduction of Anesthetic Agent into Spinal Canal, Percutaneous Approach (ICD-10-PCS; 2017-12-25)
PROC: 00HU33Z Insertion of Infusion Device into Spinal Canal, Percutaneous Approach (ICD-10-PCS; 2017-12-25)
PROC: 3E0234Z Introduction of Serum, Toxoid and Vaccine into Muscle, Percutaneous Approach (ICD-10-PCS; 2017-12-26)
DX: O14.14 Severe pre-eclampsia complicating childbirth (principal); O98.52 Other viral diseases complicating childbirth; B00.9 Herpesviral infection, unspecified; Z3A.39 39 weeks gestation of pregnancy; Z37.0 Single live birth; Z23 Encounter for immunization
CPT/HCPCS: 36415; 76815; 76819; 81001; 82565; 83615; 84450; 84460; 84550; 85014; 85018; 85027; 86592; 86850; 86900; 86901; 90707; 99211; A6250; G0463; J2590; J3475; J7120

== ENCOUNTER 2018-01-02 08:19 | Inpatient (IN) | payer OTHER ==
--- NOTE | 2018-01-02 08:40 | Emergency Department Report ---
HPI - General Chief Complaint: High BP Time Seen by Provider: 01/02/18 08:27 - HPI HPI: 32-year-old AA female presents as a transfer from [facility] with complaint of preeclampsia. The patient is about 1 week status post spontaneous vaginal delivery done here at [facility] by Dr. Allison of [facility]. It sounds that the patient had some hypertensive issues around that time she was started on labetalol 200 mg twice daily that she says she has been taking compliantly. She went to [facility] last night for continued hypertension, shoulder and/or neck stiffness and a headache. She denies any fever, nausea, vomiting, chest pain, shortness of breath, dysuria, vaginal bleeding. She is with this previous delivery. She had a CT of the brain and cervical spine done at [facility]. She presents with some labs that show some anemia, proteinuria. I had spoken with the ER phsyician at [facility], Dr Cuevas, who says he was in contacts with Dr Silvia Allison who requested the patient be sent to the [facility] ED for further evaluation. ED Past Medical Hx - Past Medical History Hx Hypertension: Yes (WITH THIS ) Hx Congestive Heart Failure: No Hx Diabetes: No Hx Deep Vein Thrombosis: No Hx Renal Disease: No Hx Sickle Cell Disease: No Hx Headaches / Migraines: Yes Hx Seizures: No Hx Asthma: No Hx COPD: No Hx HIV: No Additional medical history: Anemia - Social History Smoking Status: Never Smoker - Medications Home Medications: Home Medications Medication Instructions Recorded Confirmed Last Taken Type Valacyclovir HCl [Valtrex] 500 mg PO BID 12/17/17 12/25/17 12/24/17 09:00 History oxyCODONE /ACETAMINOPHEN [Percocet 1 tab PO Q6HR PRN #30 tablet 12/26/17 Unknown Rx 5/325] Ferrous Sulfate [Feosol 325 MG tab] 325 mg PO BID #60 tablet 12/27/17 Unknown Rx Ibuprofen [Motrin 600 MG tab] 600 mg PO Q6H PRN #30 tablet 12/27/17 Unknown Rx Labetalol [Normodyne TAB] 200 mg PO BID #60 tablet 12/27/17 Unknown Rx ED Review of Systems ROS: Stated complaint: POST /HYPERTENSION/POSS PRECLAMPSIA Other details as noted in HPI Comment: All other systems reviewed and negative Constitutional: denies: chills, fever Eyes: denies: eye pain, eye discharge, vision change ENT: denies: ear pain, throat pain Respiratory: denies: cough, shortness of breath, wheezing Cardiovascular: denies: chest pain, palpitations Gastrointestinal: denies: abdominal pain, nausea, diarrhea Genitourinary: denies: urgency, dysuria, discharge Musculoskeletal: myalgia. denies: back pain Skin: denies: rash, lesions Neurological: headache. denies: weakness, numbness Physical Exam - Physical Exam Vital Signs: Vital Signs 01/02/18 08:27 Temperature 98.4 F Pulse Rate 95 H Respiratory 16 Rate Blood Pressure 156/110 [Right] O2 Sat by Pulse 100 Oximetry Physical Exam: GENERAL: The patient is well-developed well-nourished. HENT: Normocephalic. Atraumatic. Patient has moist mucous membranes. EYES: Extraocular motions are intact. Pupils equal reactive to light bilaterally. NECK: Supple. Trachea is midline. There is no midline posterior tenderness to palpation, step-off or deformity. She has some restriction to range of motion secondary to discomfort and what appears to be muscle spasm. She has very tight musculature to the bilateral paraspinal regions as well as down into the posterior shoulder over the trapezius muscle. CHEST/LUNGS: Clear to auscultation. There is no respiratory distress noted. HEART/CARDIOVASCULAR: Regular. There is no tachycardia. There is no murmur. ABDOMEN: Abdomen is soft, nontender. Patient has normal bowel sounds. There is no abdominal distention. SKIN: Skin is warm and dry. NEURO: The patient is awake, alert, and oriented. The patient is cooperative. The patient has no focal neurologic deficits. The patient has normal speech. MUSCULOSKELETAL: There is no tenderness or deformity. There is no evidence of acute injury. ED Course Vital Signs 01/02/18 08:27 Temperature 98.4 F Pulse Rate 95 H Respiratory 16 Rate Blood Pressure 156/110 [Right] O2 Sat by Pulse 100 Oximetry ED Medical Decision Making - Medical Decision Making Patient presents here with suspicion for preeclampsia. Patient was sent to the emergency department for further evaluation. She already had a CT scan of the brain and cervical spine and apparently, per the ER physician at [facility], the results were negative for any acute processes. The labs show a hemoglobin of 9, some proteinuria but otherwise no significant lab abnormalities. Blood pressure is currently 160/116 and the patient has allegedly been compliant with her labetalol. I spoke to Dr. Silvia Allison who will graciously admit the patient to her service for further evaluation and treatment of this preeclampsia workup. Her concern was the neck stiffness and/ or pain that the patient was complaining of. However the patient has difficulty and/or discomfort with both rotational movement as well as looking up and down. She has discomfort, even without movement of the head, in the bilateral shoulders and over the trapezius muscle area. The patient does not have any fever or leukocytosis. There is a lower suspicion for meningitis. - Differential Diagnosis Preeclampsia, muscle spasm, migraine, tension TAYLOR Critical Care Time: No Critical care attestation.: If time is entered above; I have spent that time in minutes in the direct care of this critically ill patient, excluding procedure time. ED Disposition Clinical Impression: Pre-eclampsia, , Muscle spasm Headache Qualifiers: Headache type: unspecified Headache chronicity pattern: unspecified pattern Intractability: not intractable Qualified Code(s): R51 - Headache Disposition: -09 OP ADMIT IP TO THIS HOSP Is pt being admited?: Yes Condition: Stable Instructions: Hypertension (ED) Time of Disposition: 09:01
[2018-01-02] MEDS ORDERED: VALIUM IV ONE (09:48)
[2018-01-02] MEDS ORDERED: FLEXERIL PO ONE (10:11)
[2018-01-02] MEDS ORDERED: NORMODYNE IV ONE ×2 (13:09→13:11)
--- NOTE | 2018-01-02 14:58 | History and Physical Report ---
History of Present Illness Date of examination: 01/02/18 Date of admission: 01/02/18 12:19 Chief complaint: headache, neck pain History of present illness: Pt is a 32 year old -[place] female s/p on 12/25/17 complicated by PIH who [place] [facility] [place] to preeclampsia. She reports headache. She also mentions having a "crook in her neck" that never relaxed and left neck and shoulder pain in the same area. She denies blurry vision or RUQ pain. She reports compliance with labetalol 200 mg BID that was prescribed previously. Past History Past Medical History: no pertinent history Past Surgical History: no surgical history OLERICULTURIST History: gonorrhea, herpes Family/Genetic History: diabetes, heart disease, hypertension Social history: no significant social history - Obstetrical History : 5 Para: 3 Hx # Term Pregnancies: 3 Number of Pregnancies: 0 Spontaneous Abortions: 0 Induced : 2 Number of Living Children: 3 Medications and Allergies Allergies Allergy/AdvReac Type Severity Reaction Status Date / Time No Known Allergies Allergy Verified 11/26/17 19:16 Home Medications Medication Instructions Recorded Confirmed Last Taken Type oxyCODONE /ACETAMINOPHEN [Percocet 1 tab PO Q6HR PRN #30 tablet 12/26/17 Unknown Rx 5/325] Ferrous Sulfate [Feosol 325 MG tab] 325 mg PO BID #60 tablet 12/27/17 01/02/18 Unknown Rx Ibuprofen [Motrin 600 MG tab] 600 mg PO Q6H PRN #30 tablet 12/27/17 01/02/18 Unknown Rx Labetalol [Normodyne TAB] 200 mg PO BID #60 tablet 12/27/17 01/02/18 Unknown Rx Active Meds: Active Medications Hydralazine HCl (Apresoline) 5 mg IV Q30MIN PRN PRN Reason: Hypertension Lactated Ringer's (Lactated Ringers) 1,000 mls @ 125 mls/hr IV DIRECT YUNIOR Magnesium Sulfate (Magnesium Sulfate 40gm/1000ml) 40 gm in 1,000 mls @ 50 mls/ hr IV DIRECT YUNIOR PRN Reason: 2 GM/HR Magnesium Sulfate (Magnesium Sulfate 4gm/100ml) 4 gm in 100 mls @ 300 mls/hr IV ONCE ONE Stop: 01/02/18 15:10 Review of Systems All systems: negative - Vital Signs Vital signs: Vital Signs Temp Pulse Resp BP Pulse Ox 98.4 F 95 H 16 156/110 100 01/02/18 08:27 01/02/18 08:27 01/02/18 08:27 01/02/18 08:27 01/02/18 08:27 Temp Pulse Resp BP Pulse Ox 98.9 F 89 16 150/104 99 01/02/18 14:30 01/02/18 14:30 01/02/18 14:30 01/02/18 14:30 01/02/18 14:30 - Physical Exam Breasts: Positive: deferred Cardiovascular: Regular rate Lungs: Positive: Clear to auscultation Abdomen: Positive: soft Extremities: Positive: edema (trace ) Results All other labs normal. Assessment and Plan A: s/p at 12/25/17 Preeclampsia Left neck pain P: Admit for observation Magnesium sulfate for seizure prophylaxis wit q 6 h mag levels Warm compress to left neck Restart PO Labetalol Continue to monitor.
[2018-01-02] MEDS ORDERED: MAGNESIUM SULFATE 4GM/100ML 4 GM/100 ML BAG IV ONE (15:30)
[2018-01-02] MEDS ORDERED: MAGNESIUM SULFATE 40GM/1000ML 40 GM/1,000 ML BAG IV SCH (16:00)
[2018-01-02] MEDS: APRESOLINE IV PRN (16:37)
[2018-01-02] MEDS: LACTATED RINGERS 1,000 ML IV SCH (16:58)
[2018-01-02] MEDS ORDERED: MOTRIN PO PRN (17:56)
[2018-01-02] MEDS: PERCOCET 5/325 PO PRN ×2 (20:09→23:41)
[2018-01-02] MEDS: NORMODYNE PO SCH (21:19)
[2018-01-03 00:41] LABS: Hematocrit 28.6 % (30.3-42.9); Hemoglobin 8.8 gm/dl (10.1-14.3); Mean Corpuscular HGB Conc 31 % (30-34); Mean Corpuscular Hemoglobin 23 pg (28-32); Mean Corpuscular Volume 74 fl (79-97); Platelet Count 219 K/mm3 (140-440); Red Blood Count 3.85 M/mm3 (3.65-5.03); Red Cell Distribution Width 16.5 % (13.2-15.2)
[2018-01-03 00:53] LABS: Alanine Aminotransferase 17 units/L (7-56)
[2018-01-03] MEDS: PERCOCET 5/325 PO PRN ×4 (03:31→21:20)
[2018-01-03] MEDS: LACTATED RINGERS 1,000 ML IV SCH (05:06)
[2018-01-03] MEDS: NORMODYNE PO SCH ×2 (09:55→21:20)
--- NOTE | 2018-01-03 13:39 | Progress Note ---
Subjective - Subjective Date of service: 01/03/18 Objective - Vital Signs Latest vital signs: Vital Signs Temp Pulse Resp BP BP Pulse Ox 01/03/18 11:43 97.9 F 102 H 18 140/82 98 01/03/18 09:55 144/95 01/03/18 07:22 98.0 F 96 H 16 144/95 99 01/03/18 04:45 97 H 98 01/03/18 04:44 97.8 F 84 18 122/89 99 01/03/18 02:27 85 100 01/03/18 02:26 97.2 F L 87 20 135/97 100 01/03/18 00:55 85 98 01/03/18 00:54 97.7 F 87 17 113/80 98 01/02/18 22:17 94 H 99 01/02/18 22:16 98.1 F 98 H 20 132/94 98 01/02/18 21:19 84 144/99 01/02/18 21:18 98.9 F 112 H 20 145/104 99 01/02/18 21:17 144/99 01/02/18 20:09 113 H 99 01/02/18 20:08 98.9 F 114 H 20 145/104 98 01/02/18 17:32 102 H 151/98 01/02/18 17:27 98 H 149/103 98 01/02/18 17:22 90 156/98 01/02/18 17:18 92 H 150/102 01/02/18 17:12 88 153/102 01/02/18 17:08 78 170/107 01/02/18 16:51 83 169/115 01/02/18 16:45 79 172/109 01/02/18 16:40 93 H 176/101 01/02/18 16:37 85 173/113 01/02/18 16:11 99.5 F 85 16 173/113 100 01/02/18 15:00 162/111 99 01/02/18 14:50 168/111 100 01/02/18 14:40 168/111 100 01/02/18 14:30 98.9 F 89 16 168/111 150/104 100 01/02/18 14:20 153/107 100 01/02/18 14:10 153/107 100 01/02/18 14:00 153/107 100 01/02/18 13:50 166/109 100 01/02/18 13:40 166/109 100 Intake and Output 01/02/18 01/03/18 01/03/18 22:59 06:59 14:59 Intake Total 120 1690 21 Output Total 1300 Balance 120 390 21 Intake: IV 1000 Lactated Ringers 1,000 ml 1000 @ 125 mls/hr IV DIRECT YUNIOR Rx#:[id number] Oral 120 690 21 Output: Urine 1300 Indwelling Catheter 1300 Urine/Stool Mix 0 Other: Total, Intake Amount 120 450 21 Total, Output Amount 400 Voiding Method Indwelling Catheter Indwelling Catheter Toilet Weight 97.522 kg - Labs Labs: Abnormal lab results 01/03/18 01/03/18 01/03/18 Range/Units 00:16 00:16 06:56 Hgb 8.8 L (10.1-14.3) gm/dl Hct 28.6 L (30.3-42.9) % MCV 74 L (79-97) fl MCH 23 L (28-32) pg RDW 16.5 H (13.2-15.2) % Creatinine 0.6 L (0.7-1.2) mg/dL Magnesium 5.10 H 5.50 H (1.7-2.3) mg/dL Lactate Dehydrogenase 292 H (91-180) units/L
[2018-01-04] MEDS: PERCOCET 5/325 PO PRN ×4 (03:28→21:33)
[2018-01-04] MEDS: APRESOLINE IV PRN (09:25)
[2018-01-04] MEDS: NORMODYNE PO SCH ×2 (09:26→21:33)
--- NOTE | 2018-01-04 20:41 | Progress Note ---
Assessment and Plan HD 3 with patient admitted for post preeclampsia. Patient's blood pressures are now in normal range, but she is still complaining of head and neck pain along with headache. Will consult anesthesia for possibility of possible spinal headache. Subjective - Subjective Date of service: 01/04/18 Patient reports: appetite normal, pain well controlled, other (still complaining of headache and neck pain) Objective - Vital Signs Latest vital signs: Vital Signs Temp Pulse Resp BP BP Pulse Ox 01/04/18 17:10 98.9 F 86 18 134/80 100 01/04/18 11:34 98.4 F 84 18 130/78 96 01/04/18 09:30 128/82 01/04/18 07:45 98.4 F 78 18 172/109 99 01/04/18 04:30 98.4 F 68 16 114/67 01/04/18 00:30 98.7 F 95 H 18 129/91 01/03/18 21:20 105 H 144/97 Intake and Output 01/04/18 01/04/18 01/04/18 06:59 14:59 22:59 Intake Total 300 960 480 Output Total 2200 Balance -1900 960 480 Intake: Oral 480 240 Intake, Free Water 300 480 240 Output: Urine 2200 Void 2200 Other: Total, Intake Amount 240 240 Total, Output Amount 800 Voiding Method Toilet Toilet # Voids Void 1 1 1 - Exam Cardiovascular: Present: Regular rate, Normal S1, Normal S2 Lungs: Present: Clear to auscultation, Normal air movement Abdomen: Present: normal appearance, soft, normal bowel sounds Extremities: Present: normal Deep Tendon Reflex Grade: Normal +2
--- NOTE | 2018-01-04 22:20 | Progress Note ---
Subjective Date of service: 01/04/18 Principal diagnosis: referral to anesthesia to rule out 'spinal' headache Interval history: Patient is status post delivery with CELINE for peripartum pain. Patient reports a headache on the left side of the neck in the trapezius region with radiation along the C2/3 dermatomes consistent with occipital neuralgia.. Physical exam: CN2-12 grossly intact. change of position from recumbant to sitting did not increase the headache. Patient not moving the neck much because rotation increases the pain. TTP over the insertion point of the trapezius muscle and occipital groove on the left. Recommendation: initiate an NSAID, muscle relaxant and topical lidocaine. I have discussed with Dr Calero whom informed me to place the medication order. I have placed the order for the medication of which I have found to be the most effective. Dr Calero may change these as she sees fit. encourage the patient to stretch the trapezius muscle. May have to ask PT/OT to help. If all other issues are stable but headache continues, consider imaging of the neck then the patient can be referred to an out patient pain specialist to determine the options of treatment. I suggest tapering the narcotic to off as soon as possible. Objective - Constitutional Vitals: Vital Signs - 12hr 01/04/18 01/04/18 01/04/18 11:34 17:10 20:30 Temperature 98.4 F 98.9 F 98.5 F Pulse Rate 84 86 101 H Respiratory 18 18 18 Rate Blood Pressure Blood Pressure 130/78 134/80 143/91 [Right] O2 Sat by Pulse 96 100 97 Oximetry 01/04/18 21:33 Temperature Pulse Rate 92 H Respiratory Rate Blood Pressure 149/103 Blood Pressure [Right] O2 Sat by Pulse Oximetry - Labs CBC & Chem 7: 01/03/18 00:16 01/03/18 00:16
[2018-01-04] MEDS: ZANAFLEX PO PRN (22:45)
[2018-01-04] MEDS: LIDODERM 5% TD SCH (22:48)
[2018-01-05] MEDS: PERCOCET 5/325 PO PRN ×2 (05:25→23:40)
--- NOTE | 2018-01-05 08:54 | Progress Note ---
Assessment and Plan A/P pree-s/p mag elevated BP on labetolol and procardia following recommnedations form anesthesia PT consult placed if no resolution will consider imaging as recommneded from anesthesia Subjective - Subjective Date of service: 01/05/18 Principal diagnosis: referral to anesthesia to rule out 'spinal' headache Patient reports: appetite normal, voiding normally, pain well controlled, flatus , ambulating normally Objective - Vital Signs Latest vital signs: Vital Signs Temp Pulse Resp BP BP Pulse Ox 01/05/18 07:10 98.6 F 84 18 138/92 98 01/05/18 04:55 98.6 F 63 18 151/94 99 01/05/18 00:10 98.0 F 91 H 18 134/70 97 01/04/18 21:33 92 H 149/103 01/04/18 20:30 98.5 F 101 H 18 143/91 97 01/04/18 17:10 98.9 F 86 18 134/80 100 01/04/18 11:34 98.4 F 84 18 130/78 96 01/04/18 09:30 128/82 Intake and Output 01/04/18 01/05/18 01/05/18 23:59 07:59 15:59 Intake Total 600 Output Total 120 Balance 600 -120 Intake: Oral 360 Intake, Free Water 240 Output: Urine 120 Void 120 Other: Total, Intake Amount 120 Total, Output Amount 120 Voiding Method Toilet # Voids Void 1 1 - Exam Breasts: Present: normal Cardiovascular: Present: Regular rate, Normal S1 Lungs: Present: Clear to auscultation, Normal air movement Abdomen: Present: normal appearance, soft, normal bowel sounds. Absent: distention, tenderness, guarding Vulva: both: normal Uterus: Present: normal, firm, fundal height below umbilicus. Absent: bogginess , tenderness Extremities: Present: normal Deep Tendon Reflex Grade: Normal +2
--- NOTE | 2018-01-05 09:52 | Progress Note ---
Subjective Date of service: 01/05/18 Principal diagnosis: referral to anesthesia to rule out 'spinal' headache Interval history: 11th day after normal vaginal delivery Patient is still complaining to occipital headache and neckache. Pain appeared 1 week after uneventful labor and along with moderately elevated blood pressure. Current therapy, including pain meds, muscle relaxants, blood pressure meds and topical treatment is mostly ineffective. Patient is informed that these symptoms have a remote possibility to be attributed to epidural placement and be atypical postpuncture headache. Patient is willing to try a blood patch. Consent for this procedure is obtained Objective - Constitutional Vitals: Vital Signs - 12hr 01/05/18 01/05/18 01/05/18 00:10 04:55 07:10 Temperature 98.0 F 98.6 F 98.6 F Pulse Rate 91 H 63 84 Respiratory 18 18 18 Rate Blood Pressure 134/70 151/94 138/92 [Right] O2 Sat by Pulse 97 99 98 Oximetry - Labs CBC & Chem 7: 01/03/18 00:16 01/03/18 00:16
[2018-01-05] MEDS: NORMODYNE PO SCH ×2 (09:54→21:26)
[2018-01-05] MEDS: PROCARDIA XL PO SCH ×2 (09:54→21:26)
[2018-01-05] MEDS: VOLTAREN PO SCH ×3 (10:26→21:25)
--- NOTE | 2018-01-05 10:51 | Anesthesia Day of Surgery ---
Anesthesia Day of Surgery - Day of Surgery Patient Examined: Yes Patient H&P Reviewed: Yes Patient is NPO: Yes
--- NOTE | 2018-01-05 11:19 | Progress Note ---
Subjective Date of service: 01/05/18 (Retested positional discomfort - positive at this time) Principal diagnosis: referral to anesthesia to rule out 'spinal' headache Interval history: Patient arrived at minor procedure room. Reevaluation. Noted change in exam since last night. It is now positional and bilateral. Time out. Sterile prep/ drape on back and arm. Tuohey to space SHIV to saline. 20G started on left hand with good return but slow. 20G started on right forearm with faster return. 20ml of patient's blood placed in epidural space. Patient appropriately reports pressure at final 5ml of infusion. left hand 20G secured with window dressing. right arm 20G removed and bandage applied. Patient reports that the headache has improved. No obvious complication. Objective - Constitutional Vitals: Vital Signs - 12hr 01/05/18 01/05/18 01/05/18 00:10 04:55 07:10 Temperature 98.0 F 98.6 F 98.6 F Pulse Rate 91 H 63 84 Respiratory 18 18 18 Rate Blood Pressure 134/70 151/94 138/92 [Right] O2 Sat by Pulse 97 99 98 Oximetry 01/05/18 10:26 Temperature Pulse Rate Respiratory 18 Rate Blood Pressure [Right] O2 Sat by Pulse Oximetry - Labs CBC & Chem 7: 01/03/18 00:16 01/03/18 00:16
--- NOTE | 2018-01-05 11:24 | Post Anesthesia Evaluation ---
- Post Anesthesia Evaluation Patient Participated: Yes Airway Patent: Yes Stable Respiratory Function: Yes Nausea/Vomiting: No Temp > 96.8F: Yes Pain Manageable: Yes Adequeate Hydration: Yes Anesthesia Complications: No
[2018-01-05] MEDS: APRESOLINE IV PRN ×2 (12:09→17:20)
[2018-01-05] MEDS: ZANAFLEX PO PRN (21:26)
[2018-01-06] MEDS: VOLTAREN PO SCH (08:32)
[2018-01-06] MEDS: LIDODERM 5% TD SCH (11:01)
[2018-01-06] MEDS: NORMODYNE PO SCH (11:02)
[2018-01-06] MEDS: PROCARDIA XL PO SCH (11:06)
--- NOTE | 2018-01-06 13:22 | Progress Note ---
Assessment and Plan - Patient Problems (1) Spinal headache Current Visit: Yes Status: Acute Plan to address problem: Patient doing better Discharge home Subjective - Subjective Date of service: 01/06/18 Principal diagnosis: referral to anesthesia to rule out 'spinal' headache Interval history: Patient is status post a blood patch for spinal headache. She reports feeling better. She is also demonstrating improvement in her blood pressures with 2 antihypertensive meds. Patient reports: appetite normal, voiding normally, pain well controlled Objective - Vital Signs Latest vital signs: Vital Signs Temp Pulse Resp BP BP BP Pulse Ox 01/06/18 11:02 88 133/90 01/06/18 04:35 98.4 F 109 H 18 141/99 141/99 98 01/05/18 22:25 20 01/05/18 21:26 89 141/98 01/05/18 21:10 98.2 F 89 18 141/98 99 01/05/18 17:52 103 H 136/86 01/05/18 17:35 145/99 01/05/18 17:27 78 150/97 01/05/18 17:20 71 157/106 157/106 01/05/18 17:15 98.7 F 71 20 159/105 169/111 01/05/18 15:30 20 Intake and Output 01/05/18 01/06/18 01/06/18 22:59 06:59 14:59 Intake Total 240 Balance 240 Intake: Oral 240 Other: Total, Intake Amount 240 # Voids Void 1
--- NOTE | 2018-01-06 13:24 | Discharge Summary ---
Providers - Providers Date of Admission: 01/02/18 12:19 Date of discharge: 01/06/18 Attending physician: DEMARCO VIEIRA 01/05/18 08:50 Physical Therapy Evaluation and Treat [CONS] Urgent Comment: Reason For Exam: head and neck pain Mode of Transport?: Wheelchair Referring MD: MIKEY LIGHT Primary care physician: SOHEILA DOUGLASS Hospitalization Reason for admission: other ( preeclampsia) Procedure: other (blood patch and magnesium therapy) Discharge diagnosis: other ( preeclampsia) Hospital course: The patient was a transfer from [facility] with a working diagnosis of preeclampsia. The patient received her care at [facility]. The patient complained of persistent headache and received a blood patch with improvement of her symptoms. The patient also received magnesium therapy for the preeclampsia. Condition at discharge: Good Disposition: DC-01 TO HOME OR SELFCARE - Discharge Diagnoses (1) Spinal headache Status: Acute Plan - Discharge Medications Prescriptions: Labetalol [Normodyne TAB] 400 mg PO BID #30 tablet NIFEdipine [Procardia Xl] 30 mg PO QDAY #30 tab.er.24 - Provider Discharge Summary Activity: no sex for 6 weeks, no heavy lifting 4 weeks, no strenuous exercise Diet: routine Instructions: routine Additional instructions: [] Smoking cessation referral if applicable(refer to patient education folder for contact #) [] Refer to [facility] Booklet Call your doctor immediately for: * Fever > 100.5 * Heavy vaginal bleeding ( >1 pad per hour) * Severe persistent headache * Shortness of breath * Reddened, hot, painful area to leg or breast * Drainage or odor from incision. * Scheduled follow-up in 1 week - Follow up plan
[2018-01-06 14:16] VITALS: BP 123/81
== END 2018-01-06 15:20 | disposition home or self-care (01) | DRG 776 ==
LOC: ED 08:19 → OB 12:19
PROVIDERS: ADMIT Obstetrics & Gynecology; ATTEND Obstetrics & Gynecology
PROC: 3E0R3GC Introduction of Other Therapeutic Substance into Spinal Canal, Percutaneous Approach (ICD-10-PCS; principal; 2018-01-05)
DX: O14.95 Unspecified pre-eclampsia, complicating the puerperium (principal); O90.81 Anemia of the puerperium; D64.9 Anemia, unspecified; O89.4 Spinal and epidural anesthesia-induced headache during the puerperium; G43.909 Migraine, unspecified, not intractable, without status migrainosus; M62.838 Other muscle spasm
CPT/HCPCS: 36415; 62273; 82565; 83615; 83735; 84450; 84460; 84550; 85027; 96374; J0360; J3475; J7120